=== PATIENT | female | born 1990 | race Two or more races ===

== ENCOUNTER 2023-07-31 12:29 | Emergency (ER) | payer MEDICAID, OTHER ==
[~2023-07-31] VITALS: Ht 154.9 cm; Wt 70.5 kg
[2023-07-31] MEDS ORDERED: IBUP-1454 PO (14:33)
[2023-07-31] MEDS ORDERED: CLIN300C70 PO (14:33)
[2023-07-31 14:42] VITALS: BP 118/76; PULSE 84; RESP 17; TEMP 98; O2SAT 100
== END 2023-07-31 14:44 | disposition home or self-care (01) ==
LOC: ER 12:29
DX: L02.214 Cutaneous abscess of groin (principal)